=== PATIENT | male | born 1955 | race Caucasian/White ===

== ENCOUNTER 2017-02-16 20:53 | Emergency (ER) | payer OTHER ==
[~2017-02-16] VITALS: Ht 175.3 cm; Wt 83.7 kg
[~2017-02-16 20:53] MED LIST: Ambien PO; B-123000 MCG SL; BENADRYL50 MG PO; CEFDINIR300 MG PO; CLEOCIN300 MG PO; COUMADIN,JANTOV10 MG PO; FOLIC ACID0.4 MG PO; MIRTAZAPINE15 MG PO; NORVASC5 MG PO; OXYCODONE HCL5 MG PO; PAROXETINE HCL40 MG PO; PAXIL20 MG PO; PAXIL40 MG PO; PERCOCET 5/31 TABLET PO; PRINIVIL20 MG PO; TYLENOL EXTRA500 MG PO; Vancocin Oral Soluti PO; ZESTRIL40 MG PO
[2017-02-16 21:46] LABS: HEMATOCRIT 43.4 % (38.0-50.0); MCH 34.3 PG (29.0-34.0); MCHC 33.9 G/DL (30.0-36.0); MCV 101.4 FL (86-99); MEAN PLAT.VOLUME 9.1 uM^3 (9.0-12.4); PLATELET COUNT 202 K/uL (156-360); RBC DIS.WIDTH-CV 14.6 % (11.8-14.6); RBC DIS.WIDTH-SD 55.2 % (39-53); RED BLOOD COUNT 4.28 M/uL (4.00-5.50); WHITE BLOOD COUNT 6.1 K/uL (4.1-10.2)
[2017-02-16 21:54] LABS: CHLORIDE 114 mEq/L (99-109); POTASSIUM 3.5 mEq/L (3.7-5.4); SODIUM 143 mEq/L (136-147)
[2017-02-16 21:57] LABS: GLUCOSE 96 mg/dL (70-99)
[2017-02-16 21:58] LABS: ANION GAP 12 MEQ/L (2-14); TOTAL BILIRUBIN 0.5 mg/dL (0.0-1.0)
[2017-02-16 22:00] LABS: ALKALINE PHOSPHATASE 41 IU/L (3-129); GFR ESTIMATE (CALCULATED) > 59 mL/min/; SERUM ETHYL ALCOHOL 329 mg/dL
[2017-02-16 22:01] LABS: UREA NITROGEN (BUN) 16 mg/dL (9-23)
[2017-02-17 07:51] LABS: ADD MIUA? NO; BILIRUBIN NEGATIVE; BLOOD NEGATIVE; COLOR YELLOW ((YELLOW)); GLUCOSE (STRIP) NEGATIVE; KETONES NEGATIVE; LEUKOCYTES NEGATIVE; NITRITE NEGATIVE; PROTEIN (STRIP) 30; SPECIFIC GRAVITY 1.016 (1.000-1.030); UROBILINOGEN 0.2 MG/DL (0.2-1.0)
[2017-02-17 08:07] LABS: AMPHETAMINE NEGATIVE (500 ng/mL); BARBITURATES NEGATIVE (200 ng/mL); BENZODIAZEPINES NEGATIVE (150 ng/mL); COCAINE NEGATIVE (150 ng/mL); INTERNAL CONTROLS VALID? YES; METHADONE NEGATIVE (200 ng/mL); METHAMPHETAMINE NEGATIVE (500 ng/mL); OPIATES (MORPHINE) NEGATIVE (100 ng/mL); OXYCODONE NEGATIVE (100 ng/mL); PHENCYCLIDINE NEGATIVE (25 ng/mL); PROPOXYPHENE NEGATIVE (300 ng/mL); THC CANNABINOIDS NEGATIVE (50 ng/mL); TRICYCLIC ANTIDEPRESSANTS NEGATIVE (300 ng/mL)
[2017-02-17 08:48] VITALS: BP 130/90
== END 2017-02-17 08:49 | disposition home or self-care (01) ==
LOC: EME → EDBD 20:53 → EME 20:53
PROVIDERS: Emergency Medicine
DX: F10.129 Alcohol abuse with intoxication, unspecified (principal); R45.851 Suicidal ideations; F32.9 Major depressive disorder, single episode, unspecified; F43.10 Post-traumatic stress disorder, unspecified; F17.200 Nicotine dependence, unspecified, uncomplicated; I10 Essential (primary) hypertension; Z91.040 Latex allergy status; Z88.1 Allergy status to other antibiotic agents; Z88.0 Allergy status to penicillin
CPT/HCPCS: 80053; 81003; 85027; 90837; 99281; 99285; G0480

== ENCOUNTER 2017-02-18 14:28 | Emergency (ER) | payer OTHER ==
[~2017-02-18] VITALS: Ht 172.7 cm; Wt 84.7 kg
[2017-02-18 15:13] LABS: HEMATOCRIT 46.2 % (38.0-50.0); MCH 34.6 PG (29.0-34.0); MCHC 33.8 G/DL (30.0-36.0); MCV 102.4 FL (86-99); PLATELET COUNT 190 K/uL (156-360); RBC DIS.WIDTH-CV 14.6 % (11.8-14.6); RBC DIS.WIDTH-SD 55.4 % (39-53); RED BLOOD COUNT 4.51 M/uL (4.00-5.50); WHITE BLOOD COUNT 8.1 K/uL (4.1-10.2)
[2017-02-18 15:14] LABS: CHLORIDE 115 mEq/L (99-109); SODIUM 143 mEq/L (136-147)
[2017-02-18 15:16] LABS: GLUCOSE 76 mg/dL (70-99)
[2017-02-18 15:17] LABS: ANION GAP 11 MEQ/L (2-14)
[2017-02-18 15:19] LABS: SERUM ETHYL ALCOHOL 431 mg/dL
[2017-02-18 15:20] LABS: GFR ESTIMATE (CALCULATED) > 59 mL/min/
[2017-02-18 15:21] LABS: UREA NITROGEN (BUN) 14 mg/dL (9-23)
[2017-02-18 17:34] VITALS: BP 111/59
== END 2017-02-18 17:34 | disposition home or self-care (01) ==
LOC: EME 14:28
PROVIDERS: Emergency Medicine
DX: F10.129 Alcohol abuse with intoxication, unspecified (principal); S00.81XA Abrasion of other part of head, initial encounter; Y90.8 Blood alcohol level of 240 mg/100 ml or more; Y92.480 Sidewalk as the place of occurrence of the external cause; Y93.84 Activity, sleeping; I10 Essential (primary) hypertension; Z91.040 Latex allergy status; Z88.1 Allergy status to other antibiotic agents; F17.200 Nicotine dependence, unspecified, uncomplicated
CPT/HCPCS: 70450; 80048; 85027; 99281; 99284; G0480